=== PATIENT | male | born 1995 | race Caucasian/White ===

== ENCOUNTER 2024-09-18 09:15 | Emergency (ER) | payer MEDICAID, SELFPAY ==
[2024-09-18 09:26] VITALS: BP 136/82; PULSE 118; RESP 19; TEMP 37.8; O2SAT 97; BMI 22.9
--- NOTE | 2024-09-18 09:33 | PD.EDRME ---
Rapid Medical Screening Exam RME Arrival date/time: 09/18/24 09:15 CC: Sore throat HPI patient referred from [facility] for peritonsillar abscess, patient state he tested positive for strep and was sent immediately over here patient denies shortness of breath or difficulty breathing. Chief Complaint: Dental/Oral/Throat Time Seen by Provider: 09/18/24 09:32 Vital signs: Vital Signs Temperature 100.0 F 09/18/24 09:26 Pulse Rate 118 H 09/18/24 09:26 Respiratory Rate 19 09/18/24 09:26 Blood Pressure 136/82 H 09/18/24 09:26 Pulse Oximetry (%) 97 09/18/24 09:26 Oxygen Delivery Method Room Air 09/18/24 09:26
[2024-09-18 10:05] VITALS: BP 133/86; PULSE 106; RESP 21; TEMP 38.6; O2SAT 99
--- NOTE | 2024-09-18 10:22 | XR_ITS ---
Examination: CT soft tissue neck, with intravenous contrast. 2-D coronal reconstructions. 2-D sagittal reconstructions. Date and time of exam :September 18, 2024 at 1040 hrs. Indications: Throat swelling redness and pain 2 weeks, clinical diagnosis tonsillar abscess. CTDI: vol (mGy):10 DLP: (mGycm):322 Technique: 1.25 mm axial sections of the neck of the obtained. Coronal and sagittal reconstructions have been obtained. Intravenous contrast administered 50 cc Isovue-370. Low dose protocols were performed. One or more of the following dose reduction techniques were used; automated exposure control, adjustment of the mA and/or KV according to patient size, use of iterative reconstruction technique. Findings: Symmetrical nasopharynx Bilateral soft tissue tonsillar hypertrophy Right tonsillar abscess 18 x 16 mm Left tonsillar abscess 6 x 6 mm There is encroachment upon the oropharyngeal airway secondary to the tonsillar abscesses The larynx appears normal Thyroid lobes are not enlarged 6 mm left thyroid nodule Normal epiglottis Impression: Bilateral significant soft tissue tonsillar hypertrophy Right tonsillar abscess 18 x 16 mm. Left tonsillar abscess 6 x 6 mm Partial encroachment upon the oropharyngeal airway
[2024-09-18 10:25] LABS: Basophils % (Auto) 0 % (0-2.5); Eosinophils % (Auto) 0 % (0-10); Hematocrit 42.2 % (41.0-53.0); Hemoglobin 14.8 g/dL (13.5-16.0); Immature Granulocytes % (Auto) 1 % (0-0); Immature Granulocytes Auto 0.07 Thou/mm3 (0.00-0.00); Lymphocytes # (Auto) 1.3 Thou/mm3 (1.0-4.8); Lymphocytes % (Auto) 9 % (10-50); Mean Corpuscular HGB Conc 35.1 g/dl (31.0-37.0); Mean Corpuscular Hemoglobin 29.7 pg (25.0-35.0); Mean Corpuscular Volume 85 fL (80-100); Monocytes % (Auto) 7 % (0-12); Neutrophils # (Auto) 11.9 Thou/mm3 (1.8-7.7); Neutrophils % (Auto) 83 % (37-80); Nucleated Red Blood Cell % 0 /100 WBC (0); Platelet Count 220 Thou/mm3 (140-440); RDW Standard Deviation 39.2 fL (35.1-43.9); Red Blood Count 4.98 Miln/mm3 (4.50-5.90); White Blood Count 14.2 Thou/mm3 (3.8-10.6)
[2024-09-18 10:27] LABS: Lactate (Lactic Acid) 0.9 mMol/L (0.4-2.0)
[2024-09-18] MEDS: MethylPREDNISolone SOD SUCC 62.5 MG/ML 2ML VIAL 125 MG IVP (10:28)
--- NOTE | 2024-09-18 10:40 | PD.EDDENTL ---
ED Dental RME/HPI General Chief complaint: Dental/Oral/Throat Stated complaint: FEVER, ABSCESS TO BACK OF THROAT Time Seen by Provider: 09/18/24 09:32 Arrival date/time: 09/18/24 09:15 RME / HPI RME / HPI Narrative: 09/18/24 09:15 CC: Sore throat HPI patient referred from [facility] for peritonsillar abscess, patient state he tested positive for strep and was sent immediately over here patient denies shortness of breath or difficulty breathing. DR. ROBERSON MAIN ED EVALUATION: Related Data Previous Rx's ?Medication ?Instructions ?Recorded ciprofloxacin HCl 500 mg tablet 500 mg PO BID #14 tabs 09/12/23 tramadol 50 mg tablet 50 mg PO TID PRN pain #20 tabs 09/12/23 Allergies Allergy/AdvReac Type Severity Reaction Status Date / Time hydrocodone Allergy Severe Gastrointestinal Verified 09/12/23 10:53 Upset Course Orders Category Date Time Status CT Screening NOW Care 09/18/24 10:22 Active Saline [Insert IV] NOW Care 09/18/24 09:[address] soft tissue neck w con Stat Exams 09/18/24 10:22 Ordered Blood Culture (Lab) Stat Lab 09/18/24 10:25 Received CBC Stat Lab 09/18/24 09:48 Received CMP [Comprehensive Metabolic Panel] Stat Lab 09/18/24 09:48 Received Lactate (Lactic Acid) Stat Lab 09/18/24 10:17 Completed Procalcitonin Stat Lab 09/18/24 09:48 Received MethylPREDNISolone.* [SoluMEDROL Inj] Med 09/18/24 09:32 Discontinued 125 mg IVP X1 ONE Sodium Chloride 0.9% 1000 ml [Ns] 1,000 ml Med 09/18/24 10:11 Active IV 999 mls/hr cefTRIAXone/D5w 1gm IV premix [Rocephin/D5w 1gm IV Med 09/18/24 09:32 Discontinued premix] 1 gm in 50 ml IV X1 Vital Signs Vital signs: Vital Signs Temperature 100.0 F 09/18/24 09:26 Pulse Rate 118 H 09/18/24 09:26 Respiratory Rate 19 09/18/24 09:26 Blood Pressure 136/82 H 09/18/24 09:26 Pulse Oximetry (%) 97 09/18/24 09:26 Oxygen Delivery Method Room Air 09/18/24 09:26 Dental / Oral Medications / Prescriptions Medication administrations:: Medication Administration History Sodium Chloride (Ns) 1,000 mls @ 999 mls/hr IV .Q1H1M ONE Stop: 09/18/24 11:11 Discontinued Medications Ceftriaxone Sodium/Dextrose (Rocephin/D5w 1gm Iv Premix) 1 gm in 50 mls @ 100 mls/hr IV X1 ONE Stop: 09/18/24 10:01 Methylprednisolone Sodium Succinate (Methylprednisolone Sod Succ 62.5 Mg/Ml 2ml Vial) 125 mg IVP X1 ONE Stop: 09/18/24 09:33 Last Admin: 09/18/24 10:28 Dose: 125 mg Documented By: DB Discharge Plan Prescriptions/Referrals Prescriptions/Med Rec: No Action tramadol 50 mg tablet 50 mg PO TID MDD 3 PRN (Reason: pain) Qty: 20 0RF ciprofloxacin HCl 500 mg tablet 500 mg PO BID Qty: 14 0RF Referrals: Chandrakant Ervin MD [Primary Care Provider] - In 1 week Patient/Caregiver Discharge Instructions Print Language: Prydeinig
[2024-09-18] MEDS: SODIUM CHLORIDE 0.9% 1000 ML 1,000 ML 999 ML IV (10:53)
[2024-09-18] MEDS: cefTRIAXone/D5w 1gm IV premix 1 GM/50 ML BAG IV (10:54)
[2024-09-18 11:02] LABS: Alanine Aminotransferase 42 U/L (10-49); Albumin, Serum 4.3 gm/dL (3.5-5.0); Albumin/Globulin Ratio 1.2 (1.2-2.2); Alkaline Phosphatase 74 U/L (46-116); Anion Gap 10 (7-16); Aspartate Amino Transferase 27 U/L (0-34); BUN/Creatinine Ratio 8 Ratio (12-20); Bilirubin,Total 2.8 mg/dL (0.3-1.2); Blood Urea Nitrogen 10 mg/dL (9-23); Calcium 9.3 mg/dL (8.3-10.6); Calcium (Corrected) 9.3 mg/dL (8.5-10.1); Carbon Dioxide 24.2 mMol/L (20.0-31.0); Chloride 97 mMol/L (98-107); Creatinine (Component) 1.3 mg/dL (0.6-1.3); Estimated Creatinine Clearance 98.9 mL/min (>60); Globulin 3.7 gm/dL (2.3-3.5); Glucose 94 mg/dL (74-106); Osmolality,Calculated 261 (275-295); Potassium 3.6 mMol/L (3.4-5.1); Procalcitonin 0.58 ng/ml (0.0-0.49); Sodium 131 mMol/L (136-145); eGFR > 60 See Note
--- NOTE | 2024-09-18 11:25 | EDNOTE_ITS ---
<Statement entered by Iveth Lopez MD - 09/18/24 17:34> As co-signing physician, I was present and available for consult prn. I concur with the plan and care as documented by the midlevel provider. ED Dental RME/HPI General Chief complaint: Dental/Oral/Throat Stated complaint: FEVER, ABSCESS TO BACK OF THROAT Time Seen by Provider: 09/18/24 09:32 Arrival date/time: 09/18/24 09:15 RME / HPI RME / HPI Narrative: 28-year-old male patient was sent to us by PCP for evaluation regarding sore throat. Patient has been having sore throat, for the last 3 days, initially mild getting worse. Patient denies any fever denies any cough denies any shortness of breath. Patient denies any difficulty swallowing. Is able to eat however with discomfort. Patient went to PCP, and was referred here to rule out peritonsillar abscess. No medication was given prior to emergency room visit. Related Data Previous Rx's ?Medication ?Instructions ?Recorded ciprofloxacin HCl 500 mg tablet 500 mg PO BID #14 tabs 09/12/23 tramadol 50 mg tablet 50 mg PO TID PRN pain #20 ta bs 09/12/23 amoxicillin 875 mg-potassium 1 tab PO BID #14 tabs clavulanate 125 mg tablet ibuprofen 800 mg tablet 800 mg PO Q8H PRN pain #30 t abs 09/18/24 Allergies Allergy/AdvReac Type Severity Reaction Status Date / Time hydrocodone Allergy Severe Gastrointestinal Verified 09/12/23 10:53 Upset Review of Systems Review of Systems Narrative Review of Systems: Review of system reviewed and within normal limits except mentioned in HPI ED Exam Narrative Physical exam: VITAL SIGNS: Reviewed. GENERAL APPEARANCE: Alert and interactive, follows commands, no acute distress, HEAD AND FACE: Non-traumatic. ENT: PERRL, pink conjunctivitis, eyelid no trauma, Mucous membrane dry, bilateral tonsils erythematous, with exudates, uvula is on the midline, no swelling to the peritonsillar area NECK: Supple, nontender, no nuchal rigidity. CHEST: No tenderness, no crepitus, no paradoxical movement, no retractions. LUNGS: Clear, well ventilated, symmetric, no rales, no wheezing, no ronchi, no stridor, good breath sounds bilaterally. HEART: Regular rate, regular rhythm, no murmur, no gallops. ABDOMEN: Soft, positive bowel sounds, nondistended, no guarding, nontender, no rebound, no masses, RECTAL: Deferred. GENITAL: Deferred. NEUROLOGICAL: Gross motor function intact sensory function intact, Appropriate for age. MUSCULOSKELETAL: low back nontender, full range of motion. EXTREMITIES: Nontender, full range of motion. SKIN: Color pink, dry, no rash, no lacerations, no abrasions, no contusions. LYMPHATICS: Deferred. Course Quality Measures none Orders Category Date Time Status CT Screening NOW Care 09/18/24 10:22 Active Saline [Insert IV] NOW Care 09/18/24 09:[address] soft tissue neck w con Stat Exams 09/18/24 10:22 Completed Blood Culture (Lab) Stat Lab 09/18/24 10:25 Received CBC Stat Lab 09/18/24 09:48 Completed CMP [Comprehensive Metabolic Panel] Stat Lab 09/18/24 09:48 Completed Lactate (Lactic Acid) Stat Lab 09/18/24 10:17 Completed Procalcitonin Stat Lab 09/18/24 09:48 Completed Clindamycin 900Mg Ivpb [Cleocin/D5w Ivpb] 900 mg Med 09/18/24 11:16 Discontinued Pre-Mixed [Pre-mixed Bag] 1 bag IV X1 MethylPREDNISolone.* [SoluMEDROL Inj] Med 09/18/24 09:32 Discontinued 125 mg IVP X1 ONE Sodium Chloride 0.9% 1000 ml [Ns] 1,000 ml Med 09/18/24 10:11 Discontinued IV 999 mls/hr cefTRIAXone/D5w 1gm IV premix [Rocephin/D5w 1gm IV Med 09/18/24 09:32 Discontinued premix] 1 gm in 50 ml IV X1 Vital Signs Vital signs: Vital Signs Temperature 100.0 F 09/18/24 09:26 Pulse Rate 118 H 09/18/24 09:26 Respiratory Rate 19 09/18/24 09:26 Blood Pressure 136/82 H 09/18/24 09:26 Pulse Oximetry (%) 97 09/18/24 09:26 Oxygen Delivery Method Room Air 09/18/24 09:26 Dental / Oral MDM Narrative MDM Narrative:: 28-year-old male patient was sent to us by PCP for evaluation regarding sore throat. Patient has been having sore throat, for the last 3 days, initially mild getting worse. Patient denies any fever denies any cough denies any shortness of breath. Patient denies any difficulty swallowing. Is able to eat however with discomfort. Patient went to PCP, and was referred here to rule out peritonsillar abscess. No medication was given prior to emergency room visit. Laboratory workup is significant for WBC count of 14.2, the rest of the labs unremarkable except for total bili 02.8.. Patient CT scan of the abdomen showed Bilateral significant soft tissue tonsillar hypertrophy Right tonsillar abscess 18 x 16 mm. Left tonsillar abscess 6 x 6 mm Partial encroachment upon the oropharyngeal airway Patient received IV fluids Solu-Medrol ceftriaxone and clindamycin IV Incision and drainage is not indicated at this time patient is having bilateral tonsillar abscess. Patient data External records reviewed:: None Clinical information provided by:: patient Social determinants that could affect healthcare access:: none Patient has the following chronic illnesses:: None How is presenting disease/condition affected by chronic disease/condition?: no chronic disease Evaluation data The following diagnostics were reviewed and interpreted by me:: lab results and radiology exam(s) Lab and/or radiology exams considered but not ordered:: None Interpretation Summary: See results in [facility] Medications / Prescriptions Medications or Prescriptions considered but not ordered:: None Medication administrations:: Medication Administration History Discontinued Medications Ceftriaxone Sodium/Dextrose (Rocephin/D5w 1gm Iv Premix) 1 gm in 50 mls @ 100 mls/hr IV X1 ONE Stop: 09/18/24 10:01 Last Infusion: 09/18/24 11:59 Dose: Infused Documented By: Admin: 09/18/24 10:54 Dose: 100 mls/hr Documented By: YESENIA Sodium Chloride (Ns) 1,000 mls @ 999 mls/hr IV .Q1H1M ONE Stop: 09/18/24 11:11 Last Infusion: 09/18/24 11:59 Dose: Infused Documented By: Admin: 09/18/24 10:53 Dose: 999 mls/hr Documented By: YESENIA Clindamycin Phosphate 900 mg/ (IV Miscellaneous Supplies) 50 mls @ 50 mls/hr IV X1 ONE Stop: 09/18/24 12:15 Last Infusion: 09/18/24 12:52 Dose: Infused Documented By: Admin: 09/18/24 11:55 Dose: 50 mls/hr Documented By: YEESNIA Methylprednisolone Sodium Succinate (Methylprednisolone Sod Succ 62.5 Mg/Ml 2ml Vial) 125 mg IVP X1 ONE Stop: 09/18/24 09:33 Last Admin: 09/18/24 10:28 Dose: 125 mg Documented By: YESENIA IV fluids, Solu-Medrol IV clindamycin and ceftriaxone Consultations Consultation(s) initiated? (list below): No Diagnosis Dental Differential Diagnosis: gingival abscess and other (Peritonsillar abscess, tonsillar abscess) Most likely diagnosis given after review of the tests above:: Tonsillar abscess Admission Indicated Admission indicated?: not indicated Admission Request Was there a request for admission?: No Disposition Plan Disposition Plan: Discharge Discharge Attestation Discharge Attestation: The patient and all family members were given an opportunity to ask questions and understood the discharge instructions. Discharge instructions specifically effects, indications for sooner follow up or return to the emergency department, and the expected course of current diagnosis. Patient condition: Stable Discharge Plan Plan Patient Disposition: HOME (Self Care) Disposition Comment: Stable Prescriptions/Referrals Prescriptions/Med Rec: New amoxicillin-pot clavulanate 875-125 mg tablet 1 tab PO BID Qty: 14 0RF ibuprofen 800 mg tablet 800 mg PO Q8H PRN (Reason: pain) Qty: 30 0RF No Action tramadol 50 mg tablet 50 mg PO TID MDD 3 PRN (Reason: pain) Qty: 20 0RF ciprofloxacin HCl 500 mg tablet 500 mg PO BID Qty: 14 0RF Referrals: Chandrakant Ervin MD [Primary Care Provider] - In 1 week Problem List Clinical Impression: Tonsillar abscess Patient/Caregiver Discharge Instructions Discharge Activity: activity as tolerated Education Materials: ED Abscess Antibiotic ... Additional Instructions: Thank you for the opportunity for serving you today. You are stable for discharged . You are advised to: Follow-up with your PCP in 1 to 2 days Return to ED for worsening of symptoms Increase oral fluids Take medication as prescribed Hydrogen peroxide combined with water gargle 3 times a day as instructed Print Language: [place] Stand Alone Forms: Adri Award Info., Patient Portal Info Letter ARNULFO/JENIFER Supervising Physician ARNULFO/JENIFER Supervising Physician: MD John
[2024-09-18] MEDS: CLINDAMYCIN 900MG IVPB 900 MG in PRE-MIXED 1 BAG 50 MG IV (11:55)
[2024-09-18 12:02] VITALS: BP 123/70; PULSE 105; RESP 19; TEMP 37.2; O2SAT 96
[2024-09-18 13:00] VITALS: BP 121/65; PULSE 96; RESP 16; TEMP 37.1; O2SAT 97
== END 2024-09-18 13:00 | disposition home or self-care (01) ==
PROVIDERS: Registered Nurse General Practice; Emergency Provider Emergency Medicine; PCP Family Medicine
DX: J36 Peritonsillar abscess (principal)
CPT/HCPCS: 36415; 70491; 80053; 83605; 84145; 85025; 87040; 96365; 96367; 96375; 99285; A4649; J0696; J2919; J7030; Q9967; S0077; J0736